=== PATIENT | male | born 1995 | race Caucasian/White ===

== ENCOUNTER 2017-09-20 11:01 | Day surgery (SDC) | payer OTHER ==
[2017-09-19 15:40] VITALS: BMI 24.4
[2017-09-20 17:00] VITALS: TEMP 97.9
[2017-09-20 18:58] VITALS: BP 124/73; PULSE 74
== END 2017-09-20 18:10 | disposition home or self-care (01) ==
LOC: JASU-SURG 11:01
PROVIDERS: ATTEND Urology
PROC: 0T768DZ Dilation of Right Ureter with Intraluminal Device, Via Natural or Artificial Opening Endoscopic (ICD-10-PCS; principal; 2017-09-20)
DX: N13.5 Crossing vessel and stricture of ureter without hydronephrosis (principal)
CPT/HCPCS: 76000-TC-FY; 94760